=== PATIENT | male | born 1935 | race Caucasian/White ===

== ENCOUNTER 2016-08-14 08:08 | Inpatient (IN) | payer MEDICARE, BC ==
[~2016-08-14] VITALS: Ht 182.9 cm; Wt 59.1 kg
[~2016-08-14 08:08] MED LIST: APRESOLINE 25MG25 MG PO; ARICEPT 5MG PO; ASPIRIN 32325 MG/TAB PO; ASPIRIN E.C. 8181 MG PO; BYSTOLIC10 MG PO; BYSTOLIC5 MG PO; CATAPRES 0.1MG0.1 MG PO; CLARITIN 1010 MG/TAB PO; CLARITIN10 MG PO; COLACE 100100 MG/CAP PO; COZAAR100 MG PO; DIURIL250 MG PO; ELIQUIS 5MG PO; FERROUS SU325 MG/TAB PO; FISH OIL CONC1000 MG PO; FLOMAX 0.40.4 MG/CAP PO; FORTAMET500 MG PO; GLUCOPHAGE PO; GLUCOPHAGE XR500 M1 PO; GLUCOPHAGE1000 MG PO; HCTZ 25MG TAB25 MG PO; HCTZ 25MG25 MG PO; KLONOPIN 0.5MG0.5 MG PO; LIPITOR 80MG80 MG PO; LIPITOR80 MG PO; MAGCITRATE PO; METFORMIN1000 MG PO; MIRALAX PA17 GM/Dose PO; MOBIC15 MG PO; NASAREL0.025 MG/1 NS; NATURAL POTASS595 MG PO; NORCO 325 MG-51 TAB; NORVASC 10MG10 MG PO; NORVASC 5MG5 MG/TAB PO; PANTOPRAZOLE40 MG PO; PLAVIX 75MG TAB75 MG PO; PRAVACHOL 40MG40 MG PO; PRAVACHOL10 MG PO; PRIL40 PO; PRILOSEC 20MG20 MG PO; PROTONIX 40MG T40 MG PO; TYLENOL 325MG325 MG PO; VALIUM 5MG T5 MG/TAB PO; ZANTAC 300300 MG PO
[2016-08-14 08:53] LABS: BASO % 0.3 % (0.0-2.0); EOS # 0.3 (0.0-0.7); EOS % 2.9 % (0-4.0); GRAN # 7.2 (1.4-6.5); GRAN % 77.9 % (42.2-75.2); LYMPH # 1.2 (1.2-3.4); LYMPH % 12.4 % (20.0-51.0); MEAN CELL VOLUME 86 fl (80.0-100.0); MEAN CORPUSCULAR HGB CONC 32 g/dl (33.0-37.0); MONO # 0.6 (0.1-0.6); MONO % 6.1 % (1.7-9.3); PLATELET COUNT 223 K/mm3 (130-400); RED BLOOD COUNT 4.08 M/mm3 (4.20-5.60); REDCELL DISTRIBUTION WIDTH-CV 13.2 % (11.5-14.5); WHITE BLOOD COUNT 9.3 K/mm3 (4.8-10.8)
[2016-08-14 08:56] LABS: HEMATOCRIT 35.2 % (42.0-52.0); HEMOGLOBIN 11.2 g/dl (13.5-18.0); MEAN CORPUSCULAR HEMOGLOBIN 27 pg (27.0-31.0)
[2016-08-14 08:58] LABS: ADJUSTED CALCIUM 9.7 mg/dL (8.4-10.2); ALBUMIN 3.9 gm/dL (3.5-5.0); BILIRUBIN,TOTAL 0.9 mg/dL (0.0-1.0); CALCIUM 9.6 mg/dL (8.4-10.2); CREATININE, serum 1.46 mg/dL (0.66-1.25); POTASSIUM 4.9 mmol/L (3.4-5.0); TOTAL PROTEIN 6.9 gm/dL (6.4-8.2)
[2016-08-14 09:01] LABS: INR 1.2 (0.8-3.0); PROTHROMBIN TIME 13.1 SECONDS (9.7-12.8)
[2016-08-14 12:41] VITALS: BP 207/77; PULSE 72; TEMP 98.5
[2016-08-14] MEDS ORDERED: GLUCOPHAGE500 MG/TAB PO (12:46)
[2016-08-14 16:02] VITALS: BP 149/61; PULSE 68; TEMP 97.5
[2016-08-14 20:22] VITALS: BP 136/55; PULSE 59; TEMP 98.2
[2016-08-14 23:03] VITALS: BP 132/67; BP 133/46; PULSE 58; PULSE 78; TEMP 97.7; TEMP 97.8
[2016-08-15] VITALS (7 sets, daily range): BP systolic 106–166; BP diastolic 52–82; PULSE 58–68; TEMP 97.4–98.5
[2016-08-15 09:05] LABS: BASO % 0.3 % (0.0-2.0); EOS # 0.3 (0.0-0.7); EOS % 3.6 % (0-4.0); GRAN # 5.6 (1.4-6.5); GRAN % 72.4 % (42.2-75.2); LYMPH # 1.3 (1.2-3.4); LYMPH % 16.4 % (20.0-51.0); MEAN CELL VOLUME 88 fl (80.0-100.0); MEAN CORPUSCULAR HGB CONC 32 g/dl (33.0-37.0); MEAN PLATELET VOLUME 10.3 fl (7.4-10.4); MONO # 0.5 (0.1-0.6); PLATELET COUNT 213 K/mm3 (130-400); RED BLOOD COUNT 3.83 M/mm3 (4.20-5.60); REDCELL DISTRIBUTION WIDTH-CV 13.2 % (11.5-14.5); WHITE BLOOD COUNT 7.7 K/mm3 (4.8-10.8)
[2016-08-15 09:19] LABS: HEMATOCRIT 33.7 % (42.0-52.0); HEMOGLOBIN 10.7 g/dl (13.5-18.0); MEAN CORPUSCULAR HEMOGLOBIN 28 pg (27.0-31.0)
[2016-08-15 09:36] LABS: CALCIUM 9.2 mg/dL (8.4-10.2); CREATININE, serum 1.39 mg/dL (0.66-1.25); POTASSIUM 4.5 mmol/L (3.4-5.0)
[2016-08-15] MEDS ORDERED: CEFTIN500 MG PO (12:31)
[2016-08-15] MEDS ORDERED: ZITHROMAX Z PA250 MG PO (12:33)
[2016-08-16 00:36] VITALS: BP 143/58; PULSE 66; TEMP 98.3
[2016-08-16 03:56] VITALS: BP 118/38; PULSE 60; TEMP 98.1
[2016-08-16 07:24] VITALS: BP 162/64; PULSE 71; TEMP 98
[2016-08-16 08:27] LABS: BASO % 0.3 % (0.0-2.0); EOS # 0.3 (0.0-0.7); EOS % 3.8 % (0-4.0); GRAN # 5.2 (1.4-6.5); LYMPH # 1.3 (1.2-3.4); LYMPH % 17.6 % (20.0-51.0); MEAN CELL VOLUME 88 fl (80.0-100.0); MEAN CORPUSCULAR HGB CONC 31 g/dl (33.0-37.0); MEAN PLATELET VOLUME 10.3 fl (7.4-10.4); MONO # 0.7 (0.1-0.6); PLATELET COUNT 183 K/mm3 (130-400); REDCELL DISTRIBUTION WIDTH-CV 13.2 % (11.5-14.5); WHITE BLOOD COUNT 7.5 K/mm3 (4.8-10.8)
[2016-08-16 08:53] LABS: HEMATOCRIT 33.3 % (42.0-52.0); HEMOGLOBIN 10.2 g/dl (13.5-18.0); MEAN CORPUSCULAR HEMOGLOBIN 27 pg (27.0-31.0)
[2016-12-20] MEDS ORDERED: IRON325 MG PO (12:32)
[2016-12-25] MEDS ORDERED: ASPIRIN 32325 MG/TAB PO (08:32)
== END 2016-08-16 12:35 | disposition home or self-care (01) | DRG 194 ==
LOC: COL.ER 08:08 → PEDS 10:39
PROVIDERS: Family Medicine; Internal Medicine; Internal Medicine Pulmonary Disease; Nurse Practitioner Family
PROC: 0BBB8ZX Excision of Left Lower Lobe Bronchus, Via Natural or Artificial Opening Endoscopic, Diagnostic (ICD-10-PCS; principal; 2016-08-15 10:00)
DX: J18.9 Pneumonia, unspecified organism (principal); R04.2 Hemoptysis; I12.9 Hypertensive chronic kidney disease with stage 1 through stage 4 chronic kidney disease, or unspecified chronic kidney disease; N18.3 Chronic kidney disease, stage 3 (moderate); E11.22 Type 2 diabetes mellitus with diabetic chronic kidney disease; E78.5 Hyperlipidemia, unspecified; K27.9 Peptic ulcer, site unspecified, unspecified as acute or chronic, without hemorrhage or perforation; K21.9 Gastro-esophageal reflux disease without esophagitis; Z95.5 Presence of coronary angioplasty implant and graft; Z87.891 Personal history of nicotine dependence
CPT/HCPCS: 99222-AI; 99232-AI; 99239; J0360; J0456; J0692; J1815; J2704; J7050; Q9967

== ENCOUNTER 2016-10-01 14:30 | Outpatient (RCR) | payer MEDICARE, BC ==
[~2016-10-01 14:30] MED LIST changes: +CEFTIN500 MG PO; +GLUCOPHAGE500 MG/TAB PO; +ZITHROMAX Z PA250 MG PO
[2016-10-19] MEDS ORDERED: NORCO 325 MG-51 TAB PO (07:05)
[2016-12-20] MEDS ORDERED: IRON325 MG PO (12:32)
[2016-12-25] MEDS ORDERED: ASPIRIN 32325 MG/TAB PO (08:32)
== END 2016-11-06 | disposition home or self-care (01) ==
LOC: WSST
DX: R41.3 Other amnesia (principal); M62.81 Muscle weakness (generalized)
CPT/HCPCS: G9168-GN; G9169-GN

== ENCOUNTER 2016-10-19 06:26 | Emergency (ER) | payer MEDICARE, BC ==
[~2016-10-19] VITALS: Ht 182.9 cm; Wt 95.0 kg
[2016-10-19 06:28] VITALS: TEMP 97.9
[2016-10-19] MEDS ORDERED: NORCO 325 MG-51 TAB PO (07:05)
[2016-10-19 07:15] LABS: BASO % 0.4 % (0.0-2.0); EOS # 0.2 (0.0-0.7); EOS % 4.1 % (0-4.0); GRAN # 3.7 (1.4-6.5); GRAN % 64.7 % (42.2-75.2); LYMPH # 1.3 (1.2-3.4); LYMPH % 22.9 % (20.0-51.0); MEAN CELL VOLUME 83 fl (80.0-100.0); MEAN CORPUSCULAR HGB CONC 32 g/dl (33.0-37.0); MONO # 0.4 (0.1-0.6); MONO % 7.5 % (1.7-9.3); PLATELET COUNT 191 K/mm3 (130-400); RED BLOOD COUNT 4.39 M/mm3 (4.20-5.60); REDCELL DISTRIBUTION WIDTH-CV 14.2 % (11.5-14.5); WHITE BLOOD COUNT 5.6 K/mm3 (4.8-10.8)
[2016-10-19 07:18] LABS: PH 6 (5-8); SQUAMOUS EPITHELIAL None Seen /hpf; URINE APPEARANCE Clear; URINE BACTERIA None Seen /hpf; URINE BILIRUBIN Negative (NEGATIVE); URINE BLOOD Negative (NEGATIVE); URINE COLOR Yellow; URINE GLUCOSE Negative (NEGATIVE); URINE KETONE Negative (NEGATIVE); URINE RBC 0-2 /hpf; URINE UROBILINOGEN Negative (NEGATIVE); URINE WBC 0-2 /hpf
[2016-10-19 07:30] LABS: ADJUSTED CALCIUM 9.3 mg/dL (8.4-10.2); ALANINE AMINOTRANSFERASE 27 U/L (21-72); ALBUMIN 3.7 gm/dL (3.5-5.0); ALKALINE PHOSPHATASE 73 U/L (50-136); ANION GAP 8 mmol/L (7-16); BILIRUBIN,TOTAL 0.7 mg/dL (0.0-1.0); BLOOD UREA NITROGEN 27 mg/dL (9-20); CALCIUM 9.1 mg/dL (8.4-10.2); CARBON DIOXIDE 25 mmol/L (22-30); CHLORIDE 105 mmol/L (98-107); CREATININE, serum 1.45 mg/dL (0.66-1.25); GLUCOSE 151 mg/dL (74-106); POTASSIUM 4.3 mmol/L (3.4-5.0); SODIUM 138 mmol/L (137-145); TOTAL PROTEIN 6.2 gm/dL (6.4-8.2)
[2016-10-19 07:31] LABS: HEMATOCRIT 36.5 % (42.0-52.0); HEMOGLOBIN 11.6 g/dl (13.5-18.0); MEAN CORPUSCULAR HEMOGLOBIN 26 pg (27.0-31.0)
[2016-10-19 07:32] LABS: C-REACTIVE PROTEIN < 0.5 mg/dL (0.0-0.9)
[2016-10-19 09:20] VITALS: BP 192/80; PULSE 58
[2016-12-20] MEDS ORDERED: IRON325 MG PO (12:32)
[2016-12-25] MEDS ORDERED: ASPIRIN 32325 MG/TAB PO (08:32)
== END 2016-10-19 09:35 | disposition home or self-care (01) ==
LOC: COL.ER 06:26
PROVIDERS: Emergency Medicine
DX: K59.00 Constipation, unspecified (principal); I25.10 Atherosclerotic heart disease of native coronary artery without angina pectoris; Z95.5 Presence of coronary angioplasty implant and graft; F03.90 Unspecified dementia, unspecified severity, without behavioral disturbance, psychotic disturbance, mood disturbance, and anxiety; E11.22 Type 2 diabetes mellitus with diabetic chronic kidney disease; I12.9 Hypertensive chronic kidney disease with stage 1 through stage 4 chronic kidney disease, or unspecified chronic kidney disease; N18.9 Chronic kidney disease, unspecified; Z87.11 Personal history of peptic ulcer disease

== ENCOUNTER → 2016-10-23 | Outpatient (CLI) | payer MEDICARE, BC ==
[~2016-10-23] MED LIST changes: +IRON325 MG PO; +NORCO 325 MG-51 TAB PO
== END ==
LOC: COL.RAD 12:34
DX: M25.551 Pain in right hip (principal)
CPT/HCPCS: J3301; Q9967

== ENCOUNTER 2016-11-15 09:44 | Inpatient (IN) | payer MEDICARE, BC ==
[~2016-11-15] VITALS: Ht 182.9 cm; Wt 91.0 kg
[2016-11-15] VITALS (577 sets, daily range): BP systolic 136–164; BP diastolic 69–96; PULSE 51–96; TEMP 97.9–98.5; O2SAT 95–100
[~2016-11-15 09:44] MED LIST changes: -IRON325 MG PO
[2016-11-15 10:11] LABS: BASO % 0.3 % (0.0-2.0); EOS # 0.2 (0.0-0.7); EOS % 2.4 % (0-4.0); GRAN # 4.7 (1.4-6.5); GRAN % 67.5 % (42.2-75.2); HEMATOCRIT 38.5 % (42.0-52.0); HEMOGLOBIN 12.4 g/dl (13.5-18.0); LYMPH # 1.5 (1.2-3.4); LYMPH % 21.1 % (20.0-51.0); MEAN CELL VOLUME 83 fl (80.0-100.0); MEAN CORPUSCULAR HEMOGLOBIN 27 pg (27.0-31.0); MEAN CORPUSCULAR HGB CONC 32 g/dl (33.0-37.0); MEAN PLATELET VOLUME 10.1 fl (7.4-10.4); MONO # 0.6 (0.1-0.6); MONO % 8.3 % (1.7-9.3); PLATELET COUNT 186 K/mm3 (130-400); RED BLOOD COUNT 4.64 M/mm3 (4.20-5.60); REDCELL DISTRIBUTION WIDTH-CV 15.5 % (11.5-14.5)
[2016-11-15 10:57] LABS: ADJUSTED CALCIUM 9.2 mg/dL (8.4-10.2); ALBUMIN 3.5 gm/dL (3.5-5.0); CALCIUM 8.8 mg/dL (8.4-10.2); CREATININE, serum 1.82 mg/dL (0.66-1.25); POTASSIUM 4.7 mmol/L (3.4-5.0); TOTAL PROTEIN 6.1 gm/dL (6.4-8.2)
[2016-11-15 11:08] LABS: TROPONIN-I 0.024 ng/mL (0.000-0.034)
[2016-11-15 11:31] LABS: PH 6 (5-8); SQUAMOUS EPITHELIAL 0-2 /hpf; URINE APPEARANCE Hazy; URINE BACTERIA None Seen /hpf; URINE BILIRUBIN Negative (NEGATIVE); URINE BLOOD Negative (NEGATIVE); URINE COLOR Yellow; URINE GLUCOSE Negative (NEGATIVE); URINE KETONE Negative (NEGATIVE); URINE RBC None Seen /hpf; URINE UROBILINOGEN Negative (NEGATIVE); URINE WBC 0-2 /hpf
[2016-11-15 11:48] LABS: ARTERIAL BLD GAS O2 SATURATION 78.6 % (92-100); ARTERIAL BLD GAS TCO2 CT 23.1; ARTERIAL BLOOD GAS BASE EXCESS -2.5 (-2-2); ARTERIAL BLOOD GAS PHT 7.39 C (7.35-7.45); ARTERIAL BLOOD GAS pH 7.39 (7.35-7.45); OXYHEMOGLOBIN 77.7 %
[2016-11-15 11:49] LABS: ARTERIAL BLOOD GAS PO2 42.2 mmHg (80-100); ARTERIAL BLOOD GAS PO2T 42.2 (80-100); ATS? YES
[2016-11-16] VITALS (665 sets, daily range): BP systolic 144–161; BP diastolic 67–88; PULSE 49–61; TEMP 98.1–98.6; O2SAT 94–100
[2016-11-16 05:49] LABS: BASO % 0.4 % (0.0-2.0); EOS # 0.2 (0.0-0.7); EOS % 3.1 % (0-4.0); GRAN # 3.6 (1.4-6.5); GRAN % 65.1 % (42.2-75.2); LYMPH # 1.2 (1.2-3.4); LYMPH % 22.4 % (20.0-51.0); MEAN CELL VOLUME 84 fl (80.0-100.0); MEAN CORPUSCULAR HGB CONC 32 g/dl (33.0-37.0); MEAN PLATELET VOLUME 10.1 fl (7.4-10.4); MONO # 0.5 (0.1-0.6); MONO % 8.8 % (1.7-9.3); PLATELET COUNT 158 K/mm3 (130-400); RED BLOOD COUNT 4.36 M/mm3 (4.20-5.60); REDCELL DISTRIBUTION WIDTH-CV 15.6 % (11.5-14.5); WHITE BLOOD COUNT 5.5 K/mm3 (4.8-10.8)
[2016-11-16 05:55] LABS: HEMATOCRIT 36.6 % (42.0-52.0); HEMOGLOBIN 11.7 g/dl (13.5-18.0); MEAN CORPUSCULAR HEMOGLOBIN 27 pg (27.0-31.0)
[2016-11-16 06:00] LABS: CALCIUM 8.7 mg/dL (8.4-10.2); CREATININE, serum 1.5 mg/dL (0.66-1.25); POTASSIUM 4.4 mmol/L (3.4-5.0)
[2016-11-16 06:30] LABS: THYROID STIMULATING HORMONE 1.92 uIU/mL (0.465-4.680)
[2016-12-20] MEDS ORDERED: IRON325 MG PO (12:32)
[2016-12-25] MEDS ORDERED: ASPIRIN 32325 MG/TAB PO (08:32)
== END 2016-11-16 11:31 | disposition home or self-care (01) | DRG 57 ==
LOC: COL.ER 09:44 → ICU 10:35
PROVIDERS: Emergency Medicine; Family Medicine; Internal Medicine Cardiovascular Disease
DX: G30.9 Alzheimer's disease, unspecified (principal); F02.80 Dementia in other diseases classified elsewhere, unspecified severity, without behavioral disturbance, psychotic disturbance, mood disturbance, and anxiety; I12.9 Hypertensive chronic kidney disease with stage 1 through stage 4 chronic kidney disease, or unspecified chronic kidney disease; E11.22 Type 2 diabetes mellitus with diabetic chronic kidney disease; N18.3 Chronic kidney disease, stage 3 (moderate); Z79.4 Long term (current) use of insulin; Z87.891 Personal history of nicotine dependence
CPT/HCPCS: OP; 99223-AI; 99238; G0378; J1650; J2310; J7030

== ENCOUNTER → 2016-11-21 | Outpatient (CLI) | payer MEDICARE, BC ==
[~2016-11-21] MED LIST changes: +IRON325 MG PO
== END ==
LOC: COL.RAD 08:37
DX: M25.551 Pain in right hip (principal)
CPT/HCPCS: J3301; Q9967

== ENCOUNTER → 2016-12-20 | Outpatient (CLI) | payer MEDICARE, BC | LOC: COL.RAD 12-13 12:00 | DX: Z53.9 Procedure and treatment not carried out, unspecified reason (principal) ==

== ENCOUNTER 2016-12-28 06:54 | Outpatient (CLI) | payer MEDICARE, BC ==
[~2016-12-28] VITALS: Ht 182.9 cm; Wt 86.4 kg
[2016-12-28] VITALS (12 sets, daily range): BP systolic 140–187; BP diastolic 56–82; PULSE 54–72
== END 2016-12-28 11:00 | disposition home or self-care (01) ==
LOC: COL.RAD 06:54
DX: C34.32 Malignant neoplasm of lower lobe, left bronchus or lung (principal)
CPT/HCPCS: 25581

== ENCOUNTER → 2017-04-04 | Outpatient (CLI) | payer MEDICARE, BC | LOC: COL.VAS 10:56 | DX: R22.42 Localized swelling, mass and lump, left lower limb (principal) ==

== ENCOUNTER 2017-05-03 13:00 | Outpatient (RCR) | payer MEDICARE, BC ==
[2017-03-07 11:30] VITALS: BP 165/68; PULSE 71; TEMP 97.9
[2017-03-08 08:42] VITALS: BP 133/56; PULSE 68; TEMP 98.1
[2017-03-13 08:52] LABS: ADD PATHOLOGY DIFF REVIEW NO
[2017-03-13 09:10] LABS: MEAN CELL VOLUME 90 fl (80.0-100.0); MEAN CORPUSCULAR HGB CONC 33 g/dl (33.0-37.0); MEAN PLATELET VOLUME 10.1 fl (7.4-10.4); PLATELET COUNT 96 K/mm3 (130-400); RED BLOOD COUNT 3.11 M/mm3 (4.20-5.60); WHITE BLOOD COUNT 2.6 K/mm3 (4.8-10.8)
[2017-03-13 09:18] LABS: HEMATOCRIT 27.9 % (42.0-52.0); HEMOGLOBIN 9.1 g/dl (13.5-18.0); MEAN CORPUSCULAR HEMOGLOBIN 29 pg (27.0-31.0)
[2017-03-13 09:22] LABS: ADJUSTED CALCIUM 9.2 mg/dL (8.4-10.2); ALBUMIN 2.9 gm/dL (3.5-5.0); BILIRUBIN,TOTAL 0.6 mg/dL (0.0-1.0); CALCIUM 8.3 mg/dL (8.4-10.2); CREATININE, serum 1.44 mg/dL (0.66-1.25); MAGNESIUM 1.7 mg/dL (1.6-2.3); POTASSIUM 4.3 mmol/L (3.4-5.0); TOTAL PROTEIN 5.4 gm/dL (6.4-8.2)
[2017-03-13 12:49] LABS: BAND 5 % (0-10); EOSINOPHIL 2 % (0-4); LYMPHOCYTE 11 % (20.0-51.0); NEUTROPHILS 82 % (42.0-75.2); PLATELET ESTIMATE DECREASED (NORMAL); TOTAL CELLS COUNTED 100
[2017-03-20 11:06] LABS: ADD PATHOLOGY DIFF REVIEW NO
[2017-03-20 11:15] LABS: MEAN CELL VOLUME 90 fl (80.0-100.0); MEAN CORPUSCULAR HGB CONC 33 g/dl (33.0-37.0); MEAN PLATELET VOLUME 10.1 fl (7.4-10.4); PLATELET COUNT 105 K/mm3 (130-400); RED BLOOD COUNT 2.91 M/mm3 (4.20-5.60)
[2017-03-20 11:17] LABS: HEMATOCRIT 26.1 % (42.0-52.0); HEMOGLOBIN 8.6 g/dl (13.5-18.0); MEAN CORPUSCULAR HEMOGLOBIN 30 pg (27.0-31.0)
[2017-03-20 11:29] LABS: ADJUSTED CALCIUM 9.1 mg/dL (8.4-10.2); BILIRUBIN,TOTAL 0.7 mg/dL (0.0-1.0); CALCIUM 8.3 mg/dL (8.4-10.2); CREATININE, serum 1.49 mg/dL (0.66-1.25); MAGNESIUM 1.6 mg/dL (1.6-2.3); POTASSIUM 4.6 mmol/L (3.4-5.0); TOTAL PROTEIN 5.5 gm/dL (6.4-8.2)
[2017-03-20 11:38] VITALS: BP 154/62; PULSE 79; TEMP 97.8
[2017-03-20 12:02] LABS: BAND 15 % (0-10); BASOPHIL 1 % (0-2); LYMPHOCYTE 11 % (20.0-51.0); NEUTROPHILS 71 % (42.0-75.2); TOTAL CELLS COUNTED 100
[2017-03-20 12:08] LABS: ANISOCYTOSIS 1+
[2017-03-20 12:09] LABS: HYPOCHROMIA 1+; PLATELET ESTIMATE DECREASED (NORMAL)
[2017-03-27 12:00] VITALS: BP 154/72; PULSE 77; TEMP 98.4
[2017-03-27 12:05] LABS: ADD PATHOLOGY DIFF REVIEW NO
[2017-03-27 12:14] LABS: MEAN CELL VOLUME 91 fl (80.0-100.0); MEAN CORPUSCULAR HGB CONC 33 g/dl (33.0-37.0); PLATELET COUNT 136 K/mm3 (130-400)
[2017-03-27 12:23] LABS: HEMATOCRIT 24.5 % (42.0-52.0); HEMOGLOBIN 8.1 g/dl (13.5-18.0); MEAN CORPUSCULAR HEMOGLOBIN 30 pg (27.0-31.0); WHITE BLOOD COUNT 1.5 K/mm3 (4.8-10.8)
[2017-03-27 12:32] LABS: ADJUSTED CALCIUM 9.2 mg/dL (8.4-10.2); BILIRUBIN,TOTAL 0.7 mg/dL (0.0-1.0); CALCIUM 8.4 mg/dL (8.4-10.2); CREATININE, serum 1.38 mg/dL (0.66-1.25); MAGNESIUM 1.7 mg/dL (1.6-2.3); POTASSIUM 4.2 mmol/L (3.4-5.0); TOTAL PROTEIN 5.3 gm/dL (6.4-8.2)
[2017-03-27 13:06] LABS: BAND 2 % (0-10); LYMPHOCYTE 14 % (20.0-51.0); METAMYELOCYTE 2 % (0-0); NEUTROPHILS 76 % (42.0-75.2); PLATELET ESTIMATE NORMAL (NORMAL); TOTAL CELLS COUNTED 100
[2017-04-03 09:15] VITALS: BP 158/68; PULSE 88; TEMP 97.7
[2017-04-03 09:46] LABS: ADD PATHOLOGY DIFF REVIEW NO
[2017-04-03 09:50] LABS: MEAN CELL VOLUME 92 fl (80.0-100.0); MEAN CORPUSCULAR HGB CONC 32 g/dl (33.0-37.0); MEAN PLATELET VOLUME 9.6 fl (7.4-10.4); PLATELET COUNT 127 K/mm3 (130-400); RED BLOOD COUNT 2.88 M/mm3 (4.20-5.60); WHITE BLOOD COUNT 2.7 K/mm3 (4.8-10.8)
[2017-04-03 09:51] LABS: HEMATOCRIT 26.6 % (42.0-52.0); HEMOGLOBIN 8.6 g/dl (13.5-18.0); MEAN CORPUSCULAR HEMOGLOBIN 30 pg (27.0-31.0)
[2017-04-03 11:38] LABS: ANISOCYTOSIS 2+; BAND 26 % (0-10); BASOPHIL 2 % (0-2); LYMPHOCYTE 23 % (20.0-51.0); MYELOCYTE 2 % (0-0); NEUTROPHILS 46 % (42.0-75.2); OVALOCYTES 1+; TOTAL CELLS COUNTED 100
[2017-04-10 09:32] VITALS: BP 149/57; PULSE 86; TEMP 97.4
[2017-04-17 09:12] VITALS: BP 152/71; PULSE 91; TEMP 98.8
[2017-04-24 10:05] VITALS: BP 162/59; PULSE 84; TEMP 97.7
[~2017-05-03] VITALS: Ht 182.9 cm; Wt 91.7 kg
[2017-05-03 13:30] VITALS: BP 163/62; PULSE 65; TEMP 97.4
== END 2017-05-03 16:13 | disposition home or self-care (01) ==
LOC: EUO 13:00
PROVIDERS: Internal Medicine; Ophthalmology
DX: C34.32 Malignant neoplasm of lower lobe, left bronchus or lung (principal); J44.9 Chronic obstructive pulmonary disease, unspecified; J43.9 Emphysema, unspecified; D63.0 Anemia in neoplastic disease
CPT/HCPCS: C1751; J1644

== ENCOUNTER → 2017-05-03 | Outpatient (CLI) | payer MEDICARE, BC | LOC: COL.RAD 13:05 | DX: I82.611 Acute embolism and thrombosis of superficial veins of right upper extremity (principal); Z95.818 Presence of other cardiac implants and grafts ==

== ENCOUNTER 2017-05-26 08:00 | Inpatient (IN) | payer MEDICARE, BC ==
[~2017-05-26] VITALS: Ht 182.9 cm; Wt 103.2 kg
[2017-05-26 08:38] LABS: BASO % 0.4 % (0.0-2.0); EOS # 0.2 (0.0-0.7); EOS % 3.1 % (0-4.0); GRAN # 3.6 (1.4-6.5); GRAN % 69.2 % (42.2-75.2); LYMPH # 0.9 (1.2-3.4); LYMPH % 16.6 % (20.0-51.0); MEAN CELL VOLUME 96 fl (80.0-100.0); MEAN CORPUSCULAR HGB CONC 32 g/dl (33.0-37.0); MEAN PLATELET VOLUME 9.9 fl (7.4-10.4); MONO # 0.5 (0.1-0.6); MONO % 10.3 % (1.7-9.3); PLATELET COUNT 175 K/mm3 (130-400); RED BLOOD COUNT 3.38 M/mm3 (4.20-5.60); WHITE BLOOD COUNT 5.2 K/mm3 (4.8-10.8)
[2017-05-26 08:42] LABS: ADJUSTED CALCIUM 9.6 mg/dL (8.4-10.2); ALBUMIN 3.7 gm/dL (3.5-5.0); BILIRUBIN,TOTAL 0.8 mg/dL (0.0-1.0); CALCIUM 9.4 mg/dL (8.4-10.2); CREATININE, serum 1.56 mg/dL (0.66-1.25); POTASSIUM 4.2 mmol/L (3.4-5.0); TOTAL PROTEIN 6.7 gm/dL (6.4-8.2)
[2017-05-26 08:43] LABS: HEMATOCRIT 32.6 % (42.0-52.0); HEMOGLOBIN 10.3 g/dl (13.5-18.0); MEAN CORPUSCULAR HEMOGLOBIN 30 pg (27.0-31.0)
[2017-05-26 08:47] LABS: INR 1.1 (0.8-3.0); PROTHROMBIN TIME 12.4 SECONDS (9.7-12.8)
[2017-05-26 08:49] LABS: PARTIAL THROMBOPLASTIN TIME 30.5 SECONDS (26.0-37.0)
[2017-05-26 08:54] LABS: TROPONIN-I 0.023 ng/mL (0.000-0.034)
[2017-05-26] MEDS ORDERED: FLOMAX 0.40.4 MG/CAP PO (09:16)
[2017-05-26] MEDS ORDERED: APRESOLINE 25MG25 MG PO (09:16)
[2017-05-26] MEDS ORDERED: CALCIUM 600/VIT1 CAP PO (09:19)
[2017-05-26 11:56] VITALS: BP 150/58; PULSE 64; TEMP 97.5
[2017-05-26 11:58] VITALS: BP 150/58; PULSE 64; TEMP 97.5
[2017-05-26 13:49] LABS: ARTERIAL BLD GAS TCO2 CT 21.2; ARTERIAL BLOOD GAS BASE EXCESS -3.9 (-2-2); ARTERIAL BLOOD GAS HCO3 20.2 meq/L (22-26); ARTERIAL BLOOD GAS PHT 7.41 C (7.35-7.45); ARTERIAL BLOOD GAS PO2 89.2 mmHg (80-100); ARTERIAL BLOOD GAS PO2T 89.2 (80-100); ARTERIAL BLOOD GAS pH 7.41 (7.35-7.45)
[2017-05-26 13:50] LABS: ATS? YES
[2017-05-26 16:41] VITALS: BP 172/61; PULSE 64; TEMP 97.3
[2017-05-26 19:59] VITALS: BP 161/78; PULSE 71; TEMP 98.8
[2017-05-26 20:23] LABS: PARTIAL THROMBOPLASTIN TIME 22.4 SECONDS (26.0-37.0)
[2017-05-26 20:30] LABS: AMMONIA < 9 umol/L (11-35)
[2017-05-26 20:32] LABS: TROPONIN-I 0.019 ng/mL (0.000-0.034)
[2017-05-26 23:58] VITALS: BP 125/50; PULSE 63; TEMP 98.8
[2017-05-27 04:10] VITALS: BP 159/59; PULSE 64; TEMP 98.2
[2017-05-27 07:25] VITALS: BP 171/73; PULSE 64; TEMP 96.5
[2017-05-27 09:18] LABS: CREATININE, serum 1.61 mg/dL (0.66-1.25); MAGNESIUM 1.8 mg/dL (1.6-2.3); PHOSPHOROUS 3.9 mg/dL (2.5-4.5); POTASSIUM 3.9 mmol/L (3.4-5.0)
[2017-05-27 09:21] LABS: BASO % 0.4 % (0.0-2.0); EOS # 0.1 (0.0-0.7); EOS % 2.6 % (0-4.0); GRAN # 3.1 (1.4-6.5); GRAN % 67.1 % (42.2-75.2); LYMPH # 0.9 (1.2-3.4); LYMPH % 18.6 % (20.0-51.0); MEAN CELL VOLUME 94 fl (80.0-100.0); MEAN CORPUSCULAR HGB CONC 32 g/dl (33.0-37.0); MEAN PLATELET VOLUME 10.1 fl (7.4-10.4); MONO # 0.5 (0.1-0.6); MONO % 11.1 % (1.7-9.3); PLATELET COUNT 181 K/mm3 (130-400); RED BLOOD COUNT 3.23 M/mm3 (4.20-5.60); WHITE BLOOD COUNT 4.7 K/mm3 (4.8-10.8)
[2017-05-27 09:23] LABS: HEMATOCRIT 30.5 % (42.0-52.0); HEMOGLOBIN 9.7 g/dl (13.5-18.0); MEAN CORPUSCULAR HEMOGLOBIN 30 pg (27.0-31.0)
[2017-05-27 11:41] VITALS: BP 137/71; PULSE 75; TEMP 97.5
[2017-05-27 13:45] LABS: INR 1.2 (0.8-3.0); PROTHROMBIN TIME 13.6 SECONDS (9.7-12.8)
[2017-05-27 15:40] VITALS: BP 154/77; PULSE 75; TEMP 97.7
[2017-05-27 15:55] VITALS: BP 154/77; PULSE 75
[2017-05-27 21:20] VITALS: BP 157/64; PULSE 59; TEMP 98.2
[2017-05-28] VITALS (9 sets, daily range): BP systolic 104–154; BP diastolic 43–76; PULSE 53–75; TEMP 96.7–98.1
[2017-05-28 04:19] LABS: BASO % 0.2 % (0.0-2.0); EOS # 0.2 (0.0-0.7); EOS % 3.8 % (0-4.0); GRAN # 2.9 (1.4-6.5); GRAN % 67.7 % (42.2-75.2); LYMPH # 0.7 (1.2-3.4); LYMPH % 15.6 % (20.0-51.0); MEAN CELL VOLUME 93 fl (80.0-100.0); MEAN CORPUSCULAR HEMOGLOBIN 30 pg (27.0-31.0); MEAN CORPUSCULAR HGB CONC 32 g/dl (33.0-37.0); MEAN PLATELET VOLUME 9.8 fl (7.4-10.4); MONO # 0.5 (0.1-0.6); MONO % 12.5 % (1.7-9.3); PLATELET COUNT 162 K/mm3 (130-400); RED BLOOD COUNT 3.01 M/mm3 (4.20-5.60); WHITE BLOOD COUNT 4.2 K/mm3 (4.8-10.8)
[2017-05-28 04:28] LABS: CALCIUM 8.7 mg/dL (8.4-10.2); CREATININE, serum 1.65 mg/dL (0.66-1.25); MAGNESIUM 1.6 mg/dL (1.6-2.3); POTASSIUM 4.1 mmol/L (3.4-5.0)
[2017-05-28 17:16] LABS: PLEURAL FLUID LEFT SIDE; PLEURAL FLUID APPEARANCE HAZY; PLEURAL FLUID COLOR YELLOW
[2017-05-28 17:24] LABS: PLEURAL FLUID - PMN 26.8 % (0-25); PLEURAL FLUID WBC 346 /mm3
[2017-05-29 03:41] VITALS: BP 138/61; PULSE 57; TEMP 98.2
[2017-05-29 08:10] VITALS: BP 148/56; PULSE 52; TEMP 98
[2017-05-29 11:14] VITALS: BP 145/56; PULSE 74; TEMP 97.1
[2017-05-29 14:09] LABS: CALCIUM 8.6 mg/dL (8.4-10.2); CREATININE, serum 1.67 mg/dL (0.66-1.25); POTASSIUM 4.2 mmol/L (3.4-5.0)
[2017-05-29] MEDS ORDERED: ELIQUIS 2.5 PO (14:46)
[2017-05-29] MEDS ORDERED: ASPIRIN E.C. 8181 MG PO (14:47)
[2017-05-29] MEDS ORDERED: FOLIC ACID 11 MG/TA1 PO (15:00)
[2017-05-29] MEDS ORDERED: JANUVIA 100MG100 MG PO ×2 (15:01)
[2017-05-29] MEDS ORDERED: JANUVIA50 MG PO (15:27)
== END 2017-05-29 16:20 | disposition home or self-care (01) | DRG 186 ==
LOC: COL.ER 08:00 → MEDICAL 10:39
PROVIDERS: Emergency Medicine; Internal Medicine; Physician Assistant
PROC: 0W9B3ZX Drainage of Left Pleural Cavity, Percutaneous Approach, Diagnostic (ICD-10-PCS; principal; 2017-05-27)
PROC: 0W9B3ZX Drainage of Left Pleural Cavity, Percutaneous Approach, Diagnostic (ICD-10-PCS; 2017-05-28)
DX: J90 Pleural effusion, not elsewhere classified (principal); G93.40 Encephalopathy, unspecified; C34.02 Malignant neoplasm of left main bronchus; I12.9 Hypertensive chronic kidney disease with stage 1 through stage 4 chronic kidney disease, or unspecified chronic kidney disease; E11.22 Type 2 diabetes mellitus with diabetic chronic kidney disease; I48.0 Paroxysmal atrial fibrillation; N18.3 Chronic kidney disease, stage 3 (moderate); I25.10 Atherosclerotic heart disease of native coronary artery without angina pectoris; E11.42 Type 2 diabetes mellitus with diabetic polyneuropathy; F03.90 Unspecified dementia, unspecified severity, without behavioral disturbance, psychotic disturbance, mood disturbance, and anxiety; Z87.891 Personal history of nicotine dependence; Z85.110 Personal history of malignant carcinoid tumor of bronchus and lung; Z95.5 Presence of coronary angioplasty implant and graft; Z85.51 Personal history of malignant neoplasm of bladder
CPT/HCPCS: 99222-AI; 99232-AI; 99233-AI; 99239; A9502; J1644; J1815; J1940; J2785; J7050; Q9967

== ENCOUNTER → 2017-08-12 | Outpatient (CLI) | payer MEDICARE, BC ==
[~2017-08-12] VITALS: Ht 182.9 cm; Wt 90.9 kg
[~2017-08-12] MED LIST changes: +CALCIUM 600/VIT1 CAP PO; +COUMADIN 5MG5 MG/TAB PO; +ELIQUIS 2.5 PO; +FOLIC ACID 11 MG/TA1 PO; +JANUVIA 100MG100 MG PO; +JANUVIA50 MG PO
[2017-08-12 09:28] VITALS: BP 179/85; PULSE 73
[2017-08-12 10:58] LABS: INR 2.3 (0.8-3.0); PROTHROMBIN TIME 26.9 SECONDS (9.7-12.8)
== END ==
LOC: COL.RAD 08:59
PROVIDERS: Internal Medicine
DX: J90 Pleural effusion, not elsewhere classified (principal); Z53.09 Procedure and treatment not carried out because of other contraindication; C34.32 Malignant neoplasm of lower lobe, left bronchus or lung; Z79.01 Long term (current) use of anticoagulants; Z79.82 Long term (current) use of aspirin

== ENCOUNTER → 2017-08-20 | Outpatient (CLI) | payer MEDICARE, BC ==
[~2017-08-20] VITALS: Ht 182.9 cm; Wt 92.3 kg
[~2017-08-20] MED LIST changes: +B-12 250 MCG PO
[2017-08-20 12:33] VITALS: BP 141/68; PULSE 56
[2017-08-20 13:58] VITALS: BP 178/73; PULSE 64
[2017-08-20 14:18] LABS: PLEURAL FLUID RBC 0 /mm3 (0-0); PLEURAL FLUID WBC 227 /mm3
[2017-08-20 14:25] LABS: GLUCOSE,PLEURAL FLUID 137 mg/dL; TOTAL PROTEIN,PLEURAL FLUID 2.8 gm/dL
[2017-08-20 14:38] LABS: PLEURAL FLUID APPEARANCE CLEAR; PLEURAL FLUID COLOR YELLOW
== END ==
LOC: COL.RAD 08-19 09:00
PROVIDERS: Internal Medicine
DX: J90 Pleural effusion, not elsewhere classified (principal); C34.32 Malignant neoplasm of lower lobe, left bronchus or lung; Z79.82 Long term (current) use of aspirin; Z79.01 Long term (current) use of anticoagulants
CPT/HCPCS: 19804

== ENCOUNTER 2017-09-19 11:30 | Inpatient (IN) | payer MEDICARE, BC ==
[~2017-09-19] VITALS: Wt 86.1 kg
[2017-09-19] VITALS (242 sets, daily range): BP systolic 152–174; BP diastolic 67–82; PULSE 60–76; TEMP 97.2–98; O2SAT 81–100
[2017-09-19 12:18] LABS: BASO % 0.1 % (0.0-2.0); EOS % 0.2 % (0-4.0); GRAN # 10.3 (1.4-6.5); GRAN % 87.4 % (42.2-75.2); LYMPH # 0.5 (1.2-3.4); LYMPH % 4.1 % (20.0-51.0); MEAN CELL VOLUME 86 fl (80.0-100.0); MEAN CORPUSCULAR HGB CONC 31 g/dl (33.0-37.0); MEAN PLATELET VOLUME 10.4 fl (7.4-10.4); MONO # 0.9 (0.1-0.6); MONO % 7.8 % (1.7-9.3); PLATELET COUNT 125 K/mm3 (130-400); REDCELL DISTRIBUTION WIDTH-CV 15.4 % (11.5-14.5)
[2017-09-19 12:22] LABS: HEMATOCRIT 31.1 % (42.0-52.0); HEMOGLOBIN 9.7 g/dl (13.5-18.0); MEAN CORPUSCULAR HEMOGLOBIN 27 pg (27.0-31.0)
[2017-09-19 12:48] LABS: ALBUMIN 3.6 gm/dL (3.5-5.0); BILIRUBIN,TOTAL 0.4 mg/dL (0.0-1.0); C-REACTIVE PROTEIN 0.8 mg/dL (0.0-0.9); CREATININE, serum 2.37 mg/dL (0.66-1.25); POTASSIUM 5.4 mmol/L (3.4-5.0); TOTAL PROTEIN 6.5 gm/dL (6.4-8.2)
[2017-09-19 13:03] LABS: TROPONIN-I 1.48 ng/mL (0.000-0.034)
[2017-09-19 13:08] LABS: PARTIAL THROMBOPLASTIN TIME 27.4 SECONDS (26.0-37.0)
[2017-09-19 13:10] LABS: INR 1.4 (0.8-3.0); PROTHROMBIN TIME 16.5 SECONDS (9.7-12.8)
[2017-09-20] VITALS (523 sets, daily range): BP systolic 132–191; BP diastolic 61–84; PULSE 57–93; TEMP 97.5–97.9; O2SAT 85–99
[2017-09-20 05:50] LABS: BASO % 0.1 % (0.0-2.0); EOS # 0.1 (0.0-0.7); EOS % 1.8 % (0-4.0); GRAN # 6.2 (1.4-6.5); GRAN % 80.7 % (42.2-75.2); LYMPH # 0.5 (1.2-3.4); MEAN CELL VOLUME 85 fl (80.0-100.0); MEAN CORPUSCULAR HGB CONC 32 g/dl (33.0-37.0); MEAN PLATELET VOLUME 10.7 fl (7.4-10.4); MONO # 0.8 (0.1-0.6); MONO % 10.9 % (1.7-9.3); PLATELET COUNT 111 K/mm3 (130-400); RED BLOOD COUNT 3.64 M/mm3 (4.20-5.60); REDCELL DISTRIBUTION WIDTH-CV 15.7 % (11.5-14.5)
[2017-09-20 05:59] LABS: HEMATOCRIT 31.1 % (42.0-52.0); HEMOGLOBIN 9.8 g/dl (13.5-18.0); INR 1.4 (0.8-3.0); MEAN CORPUSCULAR HEMOGLOBIN 27 pg (27.0-31.0); PROTHROMBIN TIME 16.3 SECONDS (9.7-12.8)
[2017-09-20 06:02] LABS: CALCIUM 8.8 mg/dL (8.4-10.2); CREATININE, serum 2.3 mg/dL (0.66-1.25); POTASSIUM 5.1 mmol/L (3.4-5.0)
[2017-09-20 06:17] LABS: TROPONIN-I 2.82 ng/mL (0.000-0.034)
[2017-09-20 12:55] LABS: PLEURAL FLUID RBC 18000 /mm3 (0-0); PLEURAL FLUID WBC 363 /mm3
[2017-09-20 12:57] LABS: PLEURAL FLUID APPEARANCE HAZY; PLEURAL FLUID COLOR YELLOW
[2017-09-20 13:04] LABS: GLUCOSE,PLEURAL FLUID 115 mg/dL; TOTAL PROTEIN,PLEURAL FLUID 2.7 gm/dL
[2017-09-20 18:18] LABS: INR 1.2 (0.8-3.0); PROTHROMBIN TIME 14.4 SECONDS (9.7-12.8)
[2017-09-21] VITALS (7 sets, daily range): BP systolic 119–197; BP diastolic 53–85; PULSE 60–75; TEMP 97.6–98.7
[2017-09-22 04:17] VITALS: BP 132/92; PULSE 51; TEMP 98.9
[2017-09-22 08:00] VITALS: BP 181/90; PULSE 50; TEMP 97.9
[2017-09-22 12:00] VITALS: BP 148/73; PULSE 51; TEMP 97.9
[2017-09-22 16:09] VITALS: BP 156/64; PULSE 63; TEMP 98.1
[2017-09-22 19:42] VITALS: BP 179/76; PULSE 55; TEMP 98
[2017-09-22 20:00] VITALS: BP 179/76; PULSE 55; TEMP 98
[2017-09-23 04:00] VITALS: PULSE 62
[2017-09-23 05:50] LABS: MEAN CELL VOLUME 85 fl (80.0-100.0); MEAN CORPUSCULAR HGB CONC 32 g/dl (33.0-37.0); PLATELET COUNT 137 K/mm3 (130-400); RED BLOOD COUNT 3.28 M/mm3 (4.20-5.60); REDCELL DISTRIBUTION WIDTH-CV 15.2 % (11.5-14.5)
[2017-09-23 06:01] LABS: HEMATOCRIT 27.9 % (42.0-52.0); HEMOGLOBIN 8.9 g/dl (13.5-18.0); MEAN CORPUSCULAR HEMOGLOBIN 27 pg (27.0-31.0)
[2017-09-23 06:11] LABS: CALCIUM 8.6 mg/dL (8.4-10.2); CREATININE, serum 1.81 mg/dL (0.66-1.25); MAGNESIUM 2.1 mg/dL (1.6-2.3); POTASSIUM 4.3 mmol/L (3.4-5.0)
[2017-09-23 06:24] LABS: BAND 1 % (0-10); EOSINOPHIL 3 % (0-4); LYMPHOCYTE 7 % (20.0-51.0); METAMYELOCYTE 1 % (0-0); NEUTROPHILS 85 % (42.0-75.2)
[2017-09-23 06:25] LABS: PLATELET ESTIMATE NORMAL (NORMAL)
[2017-09-23 06:26] LABS: HYPOCHROMIA 2+
[2017-09-23 07:09] LABS: INR 1.1 (0.8-3.0); PROTHROMBIN TIME 13.1 SECONDS (9.7-12.8)
[2017-09-23 08:00] VITALS: BP 160/86; PULSE 85; TEMP 98.2
[2017-09-23 12:02] VITALS: BP 138/51; PULSE 66; TEMP 98.3
[2017-09-23 15:46] VITALS: BP 117/50; PULSE 60; TEMP 98
[2017-09-23 20:38] VITALS: BP 163/66; PULSE 134; TEMP 98.6
[2017-09-23 23:57] VITALS: BP 111/43; PULSE 54; TEMP 97.9
[2017-09-24 04:15] VITALS: BP 137/50; PULSE 87; TEMP 98.6
[2017-09-24 07:42] VITALS: BP 183/71; PULSE 60; TEMP 97.8
[2017-09-24 08:26] LABS: INR 1.4 (0.8-3.0); PROTHROMBIN TIME 16.2 SECONDS (9.7-12.8)
[2017-09-24 09:10] LABS: BASO % 0.2 % (0.0-2.0); EOS # 0.2 (0.0-0.7); EOS % 4.2 % (0-4.0); GRAN # 4.2 (1.4-6.5); GRAN % 75.2 % (42.2-75.2); HEMATOCRIT 26.5 % (42.0-52.0); HEMOGLOBIN 8.3 g/dl (13.5-18.0); LYMPH # 0.6 (1.2-3.4); MEAN CELL VOLUME 87 fl (80.0-100.0); MEAN CORPUSCULAR HEMOGLOBIN 27 pg (27.0-31.0); MEAN CORPUSCULAR HGB CONC 31 g/dl (33.0-37.0); MEAN PLATELET VOLUME 10.3 fl (7.4-10.4); MONO # 0.6 (0.1-0.6); PLATELET COUNT 153 K/mm3 (130-400); RED BLOOD COUNT 3.05 M/mm3 (4.20-5.60); REDCELL DISTRIBUTION WIDTH-CV 15.6 % (11.5-14.5)
[2017-09-24 09:16] LABS: CALCIUM 8.4 mg/dL (8.4-10.2); CREATININE, serum 1.7 mg/dL (0.66-1.25); MAGNESIUM 2.1 mg/dL (1.6-2.3); PHOSPHOROUS 3.4 mg/dL (2.5-4.5); POTASSIUM 4.5 mmol/L (3.4-5.0)
[2017-09-24 11:06] VITALS: BP 126/35; PULSE 62
[2017-09-24 16:05] VITALS: BP 113/77; PULSE 62; TEMP 98.2
[2017-09-24 19:45] VITALS: BP 132/44; PULSE 63; TEMP 98.4
[2017-09-25 00:17] VITALS: BP 136/50; PULSE 64; TEMP 98.4
[2017-09-25 03:59] VITALS: BP 145/61; PULSE 56; TEMP 98.5
[2017-09-25 06:51] LABS: BASO % 0.2 % (0.0-2.0); EOS # 0.2 (0.0-0.7); EOS % 4.5 % (0-4.0); GRAN % 73.5 % (42.2-75.2); LYMPH # 0.6 (1.2-3.4); LYMPH % 11.5 % (20.0-51.0); MEAN CELL VOLUME 88 fl (80.0-100.0); MEAN CORPUSCULAR HGB CONC 31 g/dl (33.0-37.0); MEAN PLATELET VOLUME 10.2 fl (7.4-10.4); MONO # 0.5 (0.1-0.6); MONO % 9.7 % (1.7-9.3); PLATELET COUNT 147 K/mm3 (130-400); RED BLOOD COUNT 2.89 M/mm3 (4.20-5.60); REDCELL DISTRIBUTION WIDTH-CV 15.8 % (11.5-14.5)
[2017-09-25 06:59] LABS: INR 1.7 (0.8-3.0); PROTHROMBIN TIME 20.4 SECONDS (9.7-12.8)
[2017-09-25 07:01] LABS: CALCIUM 8.3 mg/dL (8.4-10.2); CREATININE, serum 1.71 mg/dL (0.66-1.25); MAGNESIUM 1.9 mg/dL (1.6-2.3); POTASSIUM 4.4 mmol/L (3.4-5.0)
[2017-09-25 07:14] LABS: HEMATOCRIT 25.3 % (42.0-52.0); HEMOGLOBIN 7.9 g/dl (13.5-18.0); MEAN CORPUSCULAR HEMOGLOBIN 27 pg (27.0-31.0)
[2017-09-25 08:05] VITALS: BP 178/63; PULSE 57; TEMP 97.8
[2017-09-25] MEDS ORDERED: TRANSDERM-0.5 MG/21 TD (12:01)
[2017-09-25 12:02] VITALS: BP 112/33; PULSE 56; TEMP 98
[2017-09-25] MEDS ORDERED: ROXANOL 20MG20 MG/ML SL (12:04)
[2017-09-25] MEDS ORDERED: ATIVAN 1MG T1 MG/TAB PO (12:06)
[2017-09-25] MEDS ORDERED: SEROQUEL 2525 MG/TAB PO (14:34)
[2017-09-25 15:34] VITALS: BP 112/33; PULSE 56; TEMP 98
== END 2017-09-25 16:42 | disposition hospice, inpatient (51) | DRG 64 ==
LOC: COL.ER 11:30 → ICU 14:09 → MEDICAL 09-23 10:52
PROVIDERS: Emergency Medicine; Internal Medicine; Internal Medicine Pulmonary Disease; Nurse Practitioner Family; Physician Assistant; Psychiatry & Neurology Neurology
PROC: 0W9B3ZX Drainage of Left Pleural Cavity, Percutaneous Approach, Diagnostic (ICD-10-PCS; principal; 2017-09-20)
DX: I63.442 Cerebral infarction due to embolism of left cerebellar artery (principal); I21.A1 Myocardial infarction type 2; N17.9 Acute kidney failure, unspecified; I13.0 Hypertensive heart and chronic kidney disease with heart failure and stage 1 through stage 4 chronic kidney disease, or unspecified chronic kidney disease; I50.30 Unspecified diastolic (congestive) heart failure; J90 Pleural effusion, not elsewhere classified; C34.92 Malignant neoplasm of unspecified part of left bronchus or lung; Z51.5 Encounter for palliative care; I48.2 Chronic atrial fibrillation; E11.22 Type 2 diabetes mellitus with diabetic chronic kidney disease; N18.3 Chronic kidney disease, stage 3 (moderate); E87.5 Hyperkalemia; N40.0 Benign prostatic hyperplasia without lower urinary tract symptoms; G47.00 Insomnia, unspecified; F03.90 Unspecified dementia, unspecified severity, without behavioral disturbance, psychotic disturbance, mood disturbance, and anxiety; E78.5 Hyperlipidemia, unspecified; Z95.5 Presence of coronary angioplasty implant and graft; Z79.01 Long term (current) use of anticoagulants; Z87.891 Personal history of nicotine dependence; Z85.118 Personal history of other malignant neoplasm of bronchus and lung
CPT/HCPCS: 99232-AI; 99233-AI; 99239; J1644; J1650; J1815; J1940